=== PATIENT | male | born 1995 | race Caucasian/White ===

== ENCOUNTER 2023-08-31 12:43 | Outpatient (AMB) | payer OTHER, SELFPAY ==
--- NOTE | 2023-08-31 12:46 | MHC.OFFWIV ---
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) Intake Note: pt is here today for lft pinky broken RT index cut started 2 weeks ago Patient Tobacco Use Status: Current everyday Tobacco user Allergies No Known Allergies Allergy (Verified 08/31/23 12:52) Do you need a note to return to daycare/school/sports/work: No HPI HPI Comments History of Present Illness Details Patient is a 27yo M who presents for 2 complaints 3 weeks ago he injured himself on R and L hand injury 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 [employer] He hurt his L 5th digit and got a cut to his R hand 2nd digit He said R hand 2nd digit abrasion He kept open to the air Due to cold weather it formed a scab but keeps opening due to being on his knuckle He denies pain or discharge No bleeding No fever or chills R hand dominant He said L 5th digit jammed at work Bothered slightly but last week 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 and hurt it more Decreased ROM L 5th digit at distal finger 5/10 pain Worse with movement No numbness No medicine taken for it PFSH Social History Patient Tobacco Use Status: Current everyday Tobacco user Review of Systems Const Denies chills, Denies fever(s) and Denies weakness Musc Denies back pain, Denies myalgias, Reports arthralgias, Reports limited range of motion and Denies tingling Skin/Breast Reports wounds Neuro Denies tingling, Denies paresthesias and Denies weakness Physical Exam Vital Signs: Last Vital Signs Temp 98.5 F 08/31/23 12:49 Pulse 73 08/31/23 12:49 BP 122/68 08/31/23 12:49 Pulse Ox 97 08/31/23 12:49 Oxygen Delivery Method Room Air 08/31/23 12:49 BMI result Body Mass Index 24.1 General: Non-toxic, NAD. Speaking full sentences. Skin: Warm dry throughout R 2nd digit at PIP joint pt has scabbed Y shaped lesion with central fissure. Slight surrounding edema without erythema. No drainage or bleeding + slight edema L distal 5th digit Respiratory: No tachypnea MSK: + decreased flexion at L 5th DIP joint. No tenderness to palpation extension or flexor surface of digit. No tenderness to palpation L 5th MCP or PIP joint. Full ROM digits R hand Neurology: A/O. No aphasia or facial droop. Gait without abnormality Psych: Good mood and affect Assessment & Plan Assessment & Plan (1) Finger injury: Code(s): S69.90XA - Unspecified injury of unspecified wrist, hand and finger(s), initial encounter Qualifiers: Encounter type: initial encounter Laterality: left Qualified Code(s): S69.92XA - Unspecified injury of left wrist, hand and finger(s), initial encounter Plan: Patient seen and evaluated. Xray L 5th digit: see below (2) Non-healing wound of upper extremity: Code(s): S41.109A - Unspecified open wound of unspecified upper arm, initial encounter Qualifiers: Encounter type: initial encounter Laterality: right Qualified Code(s): S41.101A - Unspecified open wound of right upper arm, initial encounter Plan: Area cleaned Discussed xerform dressings Neosporin topically Keep clean Call with concerns of infection (3) Finger fracture, left: Code(s): S62.609A - Fracture of unspecified phalanx of unspecified finger, initial encounter for closed fracture Qualifiers: Encounter type: initial encounter Finger: little finger Fracture alignment: displaced Fracture type: closed Phalanx: distal Qualified Code(s): S62.637A - Displaced fracture of distal phalanx of left little finger, initial encounter for closed fracture Plan: Patient seen and evaluated. xray + fx to extensor surface proximal aspect of distal 5th phalanx Finger splint applied Ortho referral given Patient gave verbal understanding and had no additional questions or concerns at time of discharge All questions answered Orders: Orders XR finger LT min 2V Today S69.90XA - Unspecified injury of unspecified wrist, hand and finger(s), initial encounter Referrals Orthopedics Referral S62.609A - Fracture of unspecified phalanx of unspecified finger, initial encounter for closed fracture Coding Level of Care Code Est Pt Level 4 (08355) Diagnoses Injury of finger of left hand, initial encounter S69.92XA Encounter type: initial encounter Laterality: left Non-healing wound of upper extremity, right, initial encounter S41.101A Encounter type: initial encounter Laterality: right Closed displaced fracture of distal phalanx of left little finger, initial encounter S62.637A Encounter type: initial encounter Finger: little finger Fracture alignment: displaced Fracture type: closed Phalanx: distal
[2023-08-31 12:49] VITALS: BP 122/68; PULSE 73; TEMP 36.9; O2SAT 97; BMI 24.1
== END 2023-08-31 13:41 | disposition home or self-care (01) ==
PROVIDERS: Visit Provider Physician Assistant
DX: S69.92XA Unspecified injury of left wrist, hand and finger(s), initial encounter (principal); S41.101A Unspecified open wound of right upper arm, initial encounter; S62.637A Displaced fracture of distal phalanx of left little finger, initial encounter for closed fracture
CPT/HCPCS: 99214

== ENCOUNTER 2023-08-31 13:05 | Outpatient (REF) | payer OTHER, SELFPAY ==
--- NOTE | ~2023-08-31 | XR_ITS ---
EXAMINATION: XR FINGER, LEFT CLINICAL INFORMATION: Injury of the fifth digit COMPARISON: None available. TECHNIQUE: 3 views of the left small finger. FINDINGS: There is an acute traumatic fracture of the base of the distal phalanx of the fifth digit. The distal phalanx fragment is displaced slightly ventrally. The bones and soft tissues are otherwise unremarkable. No additional fracture. XR/XR finger LT min 2V IMPRESSION: Fracture of the base of the distal phalanx of the fifth digit.
== END 2023-08-31 13:06 | disposition home or self-care (01) ==
LOC: HO.HMGCX 13:05
PROVIDERS: Visit Provider Physician Assistant
DX: S69.92XA Unspecified injury of left wrist, hand and finger(s), initial encounter (principal); X58.XXXA Exposure to other specified factors, initial encounter; Y93.9 Activity, unspecified; Y92.9 Unspecified place or not applicable; Y99.9 Unspecified external cause status
CPT/HCPCS: 73140

== ENCOUNTER 2023-09-06 11:11 | Outpatient (AMB) | payer OTHER, SELFPAY ==
--- NOTE | 2023-09-06 11:16 | A.OFFVIS_ITS ---
Intake Vital Signs 09/06/23 11:23 Height 5 ft 11 in Weight 173 lb BMI 24.1 Intake Visit Reasons: FC-Closed displaced of distal phalanx of LT Pinky Intake Note: Justin is a 27 year old right hand dominant male who presents today for a evaluation of his left 5th finger displaced, DOI about 3 weeks ago. Patient reports he initially injured his finger when he crushed his small finger in between pieces of wood. He states his pain increased after hitting a window out of a car when trying to help another person. Patient presented to [facility] walk in in where xrays were taken. Currently his pain comes with accidentally bumping his finger and is located at the DIP of his small finger. Allergies No Known Allergies Allergy (Verified 09/06/23 11:23) HPI FC-Closed displaced of distal phalanx of LT Pinky HPI Details 27-year-old right hand dominant male who presents in the office today, as a new patient, for an evaluation of left hand pain. The patient presented to the [facility] on 08/31/2023 status post 3 weeks prior fracturing his left pink and cutting his right index fingers. He stated he jammed his left little finger while at work and had increased pain since. X-rays were obtained. He was placed in a finger splint and referred to orthopedics. The patient reported he sprained the little digit around [place] between two pieces of wood. He states he broke the finger about 2 weeks ago after he hit the finger on a window when trying to help someone else. He reports his pain is located at the DIP of the small finger. 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 Patient has no known allergy history. Patient is not currently taking any medication. Patient has no known medical history. Patient has no known surgical history. Patient has a social history, as follows: -Tobacco; currently user. [facility] Social History (Updated 09/06/23 @ 11:19 by ERNST Hancock) Patient Tobacco Use Status: Current everyday Tobacco user Current occupational status: employed Current occupation: construction, right hand dominant Review of Systems Const All systems reviewed & are unremarkable except as noted in HPI and below Physical Exam Vital Signs: BMI result Body Mass Index 24.1 Const General: cooperative and no acute distress Orientation/consciousness: patient oriented x3 Resp Effort & Inspection: normal respiratory effort and able to speak in complete sentences Cardio Peripheral pulses: Peripheral pulses 2+ throughout Skin General skin exam: no rashes or lesions noted Neuro General: patient oriented x3 Extrem Other: Left little finger: Edema over the DIP. Difficulty with any flexion and extension at the DIP. Able to flex and extend the PIP and CMC. Sensation intact. Capillary refill is brisk. Office Procedures Fracture Care Fracture Billing Code: Fracture Billing Code Assessment & Plan Assessment & Plan (1) Fracture of phalanx of left little finger: Code(s): S62.607A - Fracture of unspecified phalanx of left little finger, initial encounter for closed fracture Qualifiers: Encounter type: initial encounter Fracture alignment: displaced Fracture type: closed Phalanx: unspecified phalanx Qualified Code(s): S62.607A - Fracture of unspecified phalanx of left little finger, initial encounter for closed fracture Plan Mr. Lawton is a 27-year-old right hand dominant male who presents in the office today, as a new patient, for an evaluation of left hand pain. The patient presented to the [facility] on 08/31/2023 status post 3 weeks prior fracturing his left pink and cutting his right index fingers. He stated he jammed his left little finger while at work and had increased pain since. X-rays were obtained. He was placed in a finger splint and referred to orthopedics. The patient reported he sprained the little digit around [place] between two pieces of wood. He states he broke the finger about 2 weeks ago after he hit the finger on a window when trying to help someone else. He reports his pain is located at the DIP of the small finger. 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 Patient has no known allergy history. Patient is not currently taking any medication. Patient has no known medical history. Patient has no known surgical history. Patient has a social history, as follows: -Tobacco; currently user. I discussed in detail the procedure and what to expect pre and post operatively. We discussed the risks, benefits and alternatives to the surgery as well as the rehabilitation course. The risks; which include, but are not limited to infection, bleeding, nerve injury, ongoing pain, swelling, and stiffness, perioperative risk of injury to bones and soft tissues, and blood clots. I have answered all questions and with their understanding they have consented to move forward with an open versus closed reduction, internal fixation of the left little finger to be performed on 09/08/[address] María Brown. The patient will be placed in a stack splint, off the shelf, while in the office today. Follow up will be at the post operative appointment, or sooner if needed. X-rays of the left hand, obtained on 08/31/2023, revealed: Fracture of the base of the distal phalanx of the fifth digit. Patient Instructions: Scribed for Briana Montes PA-C by Sofía Mei certified medical transcriptionist, on 09/06/2023 at 11:14 am, EST. Coding Level of Care Code New Pt Level 4 (86936) Diagnoses Closed displaced fracture of phalanx of left little finger, unspecified phalanx, initial encounter S62.607A Encounter type: initial encounter Fracture alignment: displaced Fracture type: closed Phalanx: unspecified phalanx CPT Codes Fracture Care - Fracture Billing Code: Fracture Billing Code ([id number])
[2023-09-06 11:23] VITALS: BMI 24.1
== END 2023-09-06 11:32 | disposition home or self-care (01) ==
PROVIDERS: Visit Provider Physician Assistant
DX: S62.607A Fracture of unspecified phalanx of left little finger, initial encounter for closed fracture (principal); Z04.2 Encounter for examination and observation following work accident
CPT/HCPCS: 99204

== ENCOUNTER → 2023-09-06 11:11 | Outpatient (BNVA) | payer OTHER, SELFPAY | PROVIDERS: Visit Provider Physician Assistant | DX: S62.607A Fracture of unspecified phalanx of left little finger, initial encounter for closed fracture (principal) | CPT/HCPCS: 99202 ==

== ENCOUNTER 2023-09-08 05:55 | Day surgery (SDC) | payer OTHER, SELFPAY ==
--- NOTE | 2023-09-07 09:39 | HO.ANESPROP2 ---
HPI - Anesthesia Eval Consult details Narrative: 27yo M for Left Middle Finger distal Phalanx Finger Fx CRPP PMFSH Active Problems Active Problems: All Active Problems (Updated 09/06/23 @ 11:29 by Sofía Mei) Fracture of phalanx of left little finger (Acute) Finger fracture, left (Acute) Non-healing wound of upper extremity (Acute) Finger injury (Acute) Social History Social History (Updated 09/06/23 @ 11:19 by Yecenia Delgado oSnia) Patient Tobacco Use Status: Current everyday Tobacco user Current occupational status: employed Current occupation: construction, right hand dominant Meds Allergies Allergy/AdvReac Type Severity Reaction Status Date / Time No Known Allergies Allergy Verified 09/06/23 11:23 Home Medications Medication Instructions Recorded Confirmed Last Taken Type No Known Home Meds 08/31/23 08/31/23 Unknown History Assessment and Plan Assessment Anesthesia Assessment: Chart Reviewed
[2023-09-08] VITALS (8 sets, daily range): BP systolic 112–130; BP diastolic 66–85; PULSE 59–83; RESP 10–20; TEMP 36.1–36.7; O2SAT 97–100; BMI 23.5
--- NOTE | ~2023-09-08 | FL_ITS ---
EXAMINATION: Intraoperative fluoroscopy CLINICAL INFORMATION: Middle finger distal phalanx COMPARISON: Left finger x-rays 08/31/2023 TECHNIQUE: Intraoperative fluoroscopy was provided for use by Dr. Brown. A total of 8 images were saved to PACS. A radiologist was not present during imaging. Today's dictation is only for administrative purposes to document intraoperative fluoroscopic usage. TOTAL FLUOROSCOPIC TIME: 36 seconds DAP: 0.0472 Gy-cm FL/FL guidance in OR FINDINGS~\^^ Intraoperative fluoroscopy provided for use by Dr. Brown. Please see operative note for detailed findings.
[2023-09-08] MEDS: Lactated Ringers 1,000 ML 100 ML IVCONT (06:33)
--- NOTE | 2023-09-08 07:29 | P.CONAN_ITS ---
[facility] Active Problems Active Problems: All Active Problems (Updated 09/08/23 @ 06:12 by Tania Grayson) Fracture of phalanx of left little finger (Acute) Finger fracture, left (Acute) Non-healing wound of upper extremity (Acute) Finger injury (Acute) Past Medical History Medical History (Updated 09/08/23 @ 06:12 by Tania Grayson) Smokes tobacco daily No pertinent past medical history Family History Family history of problems with anesthesia: No Surgical History Surgical History (Updated 09/08/23 @ 06:12 by Tania Grayson) No pertinent past surgical history History of Problems with Anesthesia: No Social History Social History (Updated 09/06/23 @ 11:19 by ERNST Hancock) Patient Tobacco Use Status: Current everyday Tobacco user Tobacco use type: Cigarette Cigarette Packs Per Day: 0.5 Cigarettes Per Day: 10.0 Years Smoked: 10 Smoked in Last 30 Days: Yes Use of substances other than those prescribed or required for medical reasons: Yes Substance Use Frequency: Occasionally Are you DNR?: No Advance Directives: No Advance Directives Information Provided: Yes Current occupational status: employed Current occupation: construction, right hand dominant Meds Allergies Allergy/AdvReac Type Severity Reaction Status Date / Time No Known Allergies Allergy Verified 09/08/23 06:12 Active Medications: Current Medications Lactated Ringer's (Lr) 1,000 mls @ 100 mls/hr IVCONT .Q10H SHANTELL Last Admin: 09/08/23 06:33 Dose: 100 mls/hr Home Medications Medication Instructions Recorded Confirmed Last Taken Type No Known Home Meds 08/31/23 09/08/23 Unknown History Exam Height,Weight and Vital Signs: Height 5 ft 11 in Weight 76.294 kg Last Vital Signs Temp 98.0 F 09/08/23 06:15 Pulse 75 09/08/23 06:15 Resp 16 09/08/23 06:15 BP 120/80 09/08/23 06:15 Pulse Ox 100 09/08/23 06:15 O2 Del Method Room Air 09/08/23 06:15 Airway Mallampati Class: I TM Dist: >3cm Neck ROM: Full Loose/Missing/Broken Teeth: No Heart: rrr Lungs: clear Assessment and Plan Final Anesthetic Review Family History of Problems with Anesthesia: No History of Problems with Anesthesia: No NPO: Yes ASA Class: I Final Preanesthetic Review: No Changes in Pt Med Stat, Meds/Allgs Chart Reviewed, Consent Obtained/Reviewed and Anes Risks/Benef Reviewed Patient Risk: Low Procedure Risk: Low Anesthetic Plan Anesthetic Plan: GA Disposition: Standard PACU
--- NOTE | 2023-09-08 07:37 | P.CONAN_ITS ---
[facility] Active Problems Active Problems: All Active Problems (Updated 09/08/23 @ 06:12 by Tania Grayson) Fracture of phalanx of left little finger (Acute) Finger fracture, left (Acute) Non-healing wound of upper extremity (Acute) Finger injury (Acute) Past Medical History Medical History (Updated 09/08/23 @ 06:12 by Tania Grayson) Smokes tobacco daily No pertinent past medical history Family History Family history of problems with anesthesia: No Surgical History Surgical History (Updated 09/08/23 @ 06:12 by Tania Grayson) No pertinent past surgical history History of Problems with Anesthesia: No Social History Social History (Updated 09/06/23 @ 11:19 by Yecenia Delgado Sonia) Patient Tobacco Use Status: Current everyday Tobacco user Tobacco use type: Cigarette Cigarette Packs Per Day: 0.5 Cigarettes Per Day: 10.0 Years Smoked: 10 Smoked in Last 30 Days: Yes Use of substances other than those prescribed or required for medical reasons: Yes Substance Use Frequency: Occasionally Are you DNR?: No Advance Directives: No Advance Directives Information Provided: Yes Current occupational status: employed Current occupation: construction, right hand dominant Meds Allergies Allergy/AdvReac Type Severity Reaction Status Date / Time No Known Allergies Allergy Verified 09/08/23 06:12 Active Medications: Current Medications Lactated Ringer's (Lr) 1,000 mls @ 100 mls/hr IVCONT .Q10H SHANTELL Last Admin: 09/08/23 06:33 Dose: 100 mls/hr Home Medications Medication Instructions Recorded Confirmed Last Taken Type No Known Home Meds 08/31/23 09/08/23 Unknown History Exam Height,Weight and Vital Signs: Height 5 ft 11 in Weight 76.294 kg Last Vital Signs Temp 98.0 F 09/08/23 06:15 Pulse 75 09/08/23 06:15 Resp 16 09/08/23 06:15 BP 120/80 09/08/23 06:15 Pulse Ox 100 09/08/23 06:15 O2 Del Method Room Air 09/08/23 06:15 Assessment and Plan Final Anesthetic Review Family History of Problems with Anesthesia: No History of Problems with Anesthesia: No Final Preanesthetic Review: Anes Risks/Benef Reviewed
--- NOTE | 2023-09-08 07:50 | MHC.SHP ---
Pre-Procedural Eval Section A Date of Service: 09/08/23 The patient is an INPATIENT: No Changes since office visit: No Cold of Flu in the past 2 weeks, No New Medical Problems, No Changes in Medication and No Patient answered all questions The History & Physical has been completed within 30 days and I have reviewed it.: Yes Section B Chief Complaint: Fracture of unspecified phalanx of left little fin Allergies: Allergies Allergy/AdvReac Type Severity Reaction Status Date / Time No Known Allergies Allergy Verified 09/08/23 06:12 Plan I have reviewed the history and physical and performed a pertinent physical examination on my patient. No changes have occurred unless specified. Time Spent With Patient Time: Total time managing care of this patient today ____ minutes.
--- NOTE | 2023-09-08 07:51 | P.OP_ITS ---
Operative Note Operative Note Date of Service: 09/08/23 Narrative: Operative Note Narrative: Preop diagnosis: 1. Left small finger distal phalanx base fracture Postop diagnosis: Same Procedure: 1. Left small finger distal phalanx CRPP 2. Ulnar nerve block Surgeon: María Brown MD Anesthesia: General Anesthesia Findings: finger fracture Implants: 0.035 K-wires times 3 Tourniquet time: None EBL: Minimal Specimen: None Drains: None Complications: None Disposition: Brought to the recovery room in stable condition Plan: Follow-up in 10-14 days for a wound check, postop radiographs and for placement in a short-arm finger spica cast Anticipate K-wire removal in 4-5 weeks based on interval bony healing Educate the patient that full fracture healing anticipated in approximately 8-12 weeks. Indications: The patient is 27 years old with left small finger distal phalanx base fracture with displacement . The risks and benefits of operative treatment, including but not limited to risk of damage to blood vessels, nerves, tendons, infection, recurrence, delayed or nonunion of fracture, persistent pain or numbness, incomplete resolution of preoperative symptoms, or need for further surgery were discussed with the patient and they wished to proceed with surgery. Procedure: Once consent was obtained patient was brought back to the operating suite and placed in the operating table in a supine position. . Perioperative antibiotics and general anesthesia was administered by the anesthesia team. A tourniquet was applied to the proximal aspect of the left upper extremity and the limb was prepped and draped in a standard surgical fashion. Tourniquet was not inflated during the case. The FluoroScan was used during the case to assist with our fracture reduction and placement of all implants. A closed reduction was performed on the patient's left small finger distal phalanx fracture using a 2 point reduction clamp. I then placed the 1st of three 0.035 K-wires through the dorsal base of the small finger distal phalanx. This was advanced obliquely across the fracture site and into the shaft of the distal phalanx. Two additional 0.035 K- wires were then placed in a similar manner.. Once satisfied with our fracture reduction and placement of the 3 K-wires the pins were bent cut short had pin caps applied. Fracture alignment was assessed for both angular and rotational malalignment. Final fluoroscopic images were then obtained. The wounds were copiously irrigated with normal saline. An ulnar nerve block was then performed by infiltrating about the ulnar nerve at the wrist with some 1% lidocaine with epinephrine for postop pain control. A Sterile dressing and short volar splint extending from the fingertips of the small ring and middle fingers to the forearm was applied. The patient appears to have tolerated the procedure well and with no complications. All digits were well vascularized at the conclusion of the case.
[2023-09-08] MEDS: fentaNYL citrate/PF 100 MCG/2 ML VIAL 25 MCG IVPUSH ×2 (09:40→09:45)
== END 2023-09-08 10:28 | disposition home or self-care (01) ==
PROVIDERS: Visit Provider Orthopaedic Surgery
PROC: (CPT 26756; principal; 2023-09-08 07:30)
DX: S62.607A Fracture of unspecified phalanx of left little finger, initial encounter for closed fracture (principal); W22.8XXA Striking against or struck by other objects, initial encounter; Y93.89 Activity, other specified; Y92.89 Other specified places as the place of occurrence of the external cause; Y99.8 Other external cause status; F17.210 Nicotine dependence, cigarettes, uncomplicated
CPT/HCPCS: 26756; J0690; J1100; J2250; J2405; J2704; J2795; J3010

== ENCOUNTER → 2023-09-08 05:55 | Outpatient (BNV) | payer OTHER, SELFPAY | PROVIDERS: Visit Provider Orthopaedic Surgery | DX: S62.637A Displaced fracture of distal phalanx of left little finger, initial encounter for closed fracture (principal) | CPT/HCPCS: 26756 ==

== ENCOUNTER 2023-09-21 10:06 | Outpatient (REF) | payer OTHER, SELFPAY ==
--- NOTE | ~2023-09-21 | XR_ITS ---
EXAMINATION: XR HAND, LEFT CLINICAL INFORMATION: Left hand pain COMPARISON: Left finger x-ray on 08/31/2023 TECHNIQUE: PA, lateral, and oblique views of the left hand. FINDINGS: BONES: There is percutaneous fixation of the dorsal basal fracture of left fifth finger distal phalanx with 3 Maria Dolores wires. Alignment is close to anatomical. JOINTS: Alignment of joints is normal. SOFT TISSUE: Soft tissue is normal. No radiopaque foreign body or abnormal air collection is seen. XR/XR hand LT min 3V IMPRESSION: Interval successful anatomical reduction and percutaneous fixation of dorsal basal fracture of left fifth finger distal phalanx with Maria Dolores wires.
== END 2023-09-21 10:07 | disposition home or self-care (01) ==
LOC: HO.HOSX 10:06
PROVIDERS: Visit Provider Orthopaedic Surgery
DX: S62.607D Fracture of unspecified phalanx of left little finger, subsequent encounter for fracture with routine healing (principal); M79.642 Pain in left hand; X58.XXXD Exposure to other specified factors, subsequent encounter; Z98.890 Other specified postprocedural states
CPT/HCPCS: 73130; 99212

== ENCOUNTER 2023-09-21 13:48 | Outpatient (AMB) | payer OTHER, SELFPAY ==
--- NOTE | 2023-09-21 14:09 | MHC.OFFVIS ---
Intake Intake Visit Reasons: PO LT little finger fx CRPP 09/08/23 AR Intake Note: Jn 27 yr old male presents today for his Post op visit for his Left little finger fx CRPP 09/08/23 AR. Dressing removed and xrays updated in office. Patient states he has been having some mild pain. Denies numbness and tignling. Allergies No Known Allergies Allergy (Verified 09/08/23 06:12) HPI PO LT little finger fx CRPP 09/08/23 AR HPI Details Justin is a 27 year old right hand dominant man who presents S/p left small finger distal phalanx CRPP, DOS: 09/08/23. He says he is doing well, but has been feeling some mild pain. He says he had a rough few nights following his surgery, due to throbbing pain and lack of sleep. He denies any numbness or tingling. 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 He says his post-op splint got dirty and gross since his surgery. [facility] Medical History (Updated 09/08/23 @ 06:12 by Tania Grayson) Smokes tobacco daily No pertinent past medical history Surgical History (Updated 09/08/23 @ 06:12 by Tania Grayson) No pertinent past surgical history Social History Patient Tobacco Use Status: Current everyday Tobacco user Tobacco use type: Cigarette Cigarette Packs Per Day: 0.5 Cigarettes Per Day: 10.0 Years Smoked: 10 Current occupational status: employed Current occupation: construction, right hand dominant Review of Systems Const All systems reviewed & are unremarkable except as noted in HPI and below Physical Exam Const General: no acute distress and alert Orientation/consciousness: patient oriented x3 Neuro General: patient oriented x3 Extrem Other: The patient was alert oriented and in no acute distress The incision is healing well with no erythema drainage or evidence of infection. Sutures removed and Steri-Strips applied Good active MCP joint ROM of all digits We worked on PIP joint ROM exercises for both his small & ring fingers Sensation is intact Cap refill is brisk Radiographs: 3 views of the left hand, with attention to the small finger, were taken and viewed buy me today in clinic. They show a small finger distal phalanx fracture with satisfactory fracture alignment and position of K-wires. Psych Appearance: grossly normal Affect: normal affect Attitude: cooperative Assessment & Plan Assessment & Plan (1) Fracture of phalanx of left little finger: Code(s): S62.607A - Fracture of unspecified phalanx of left little finger, initial encounter for closed fracture Qualifiers: Encounter type: initial encounter Fracture type: closed Phalanx: unspecified phalanx Fracture alignment: displaced Qualified Code(s): S62.607A - Fracture of unspecified phalanx of left little finger, initial encounter for closed fracture Plan Assessment & Plan: 1. Left small finger distal phalanx fracture, S/P CRPP DOS: 09/08/23 The patient appears to be doing well post-operatively I educated him about the post-operative course I explained the signs and symptoms of infection, if the patient develops any new or worsening erythema, drainage, pain, or warmth they should contact the clinic or attend the ED. He was placed in a short arm finger spica cast to be worn for the next 2-3 weeks I discussed activity modifications, he is to lift nothing heavier than a cellphone for the next 4 weeks I explained that I anticipate full fracture healing anticipated in ~8-12 weeks post-operatively He was given a note to remain out of work X4 weeks. 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 I anticipate removal of some or all K-wires at this time, depending on bony healing Scribed for María Brown MD by Rashaad Bashir, medical physiologist, on 09/21/23 at 2:30 PM, EST. Orders: Orders XR hand LT min 3V Today M79.642 - Pain in left hand Coding Level of Care Code Global (90648) Diagnoses Closed displaced fracture of phalanx of left little finger, unspecified phalanx, initial encounter S62.607A Encounter type: initial encounter Fracture type: closed Phalanx: unspecified phalanx Fracture alignment: displaced
== END 2023-09-21 15:28 | disposition home or self-care (01) ==
PROVIDERS: Visit Provider Orthopaedic Surgery
DX: S62.607A Fracture of unspecified phalanx of left little finger, initial encounter for closed fracture (principal)
CPT/HCPCS: 99024

== ENCOUNTER 2023-10-05 08:44 | Outpatient (AMB) | payer OTHER, SELFPAY ==
--- NOTE | 2023-10-05 08:52 | MHC.OFFVIS ---
Intake Intake Visit Reasons: PO LT LF fx CRPP 09/08/23 AR-xray cast off/ Conf Intake Note: Justin is a 27 year old right hand dominant male who presents today for a post operative visit s/p left small finger fx CRPP from 09/08/[address] Brown. Cast removed and xrays updated in office.Patient reports that he is doing well with no pain, numbness or tingling. Allergies No Known Allergies Allergy (Verified 09/08/23 06:12) HPI PO LT LF fx CRPP 09/08/23 AR-xray cast off/ Conf HPI Details Justin is a 27 year old right hand dominant man who presents S/P left small finger distal phalanx CRPP, DOS: 09/08/23. He says he is doing well, and denies any pain, numbness, or tingling. He says he was frustrated by his limited motion in his cast, and looks forward to having it removed. 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 [facility] Medical History (Updated 09/08/23 @ 06:12 by Tania Grayson) Smokes tobacco daily No pertinent past medical history Surgical History (Updated 09/08/23 @ 06:12 by Tania Grayson) No pertinent past surgical history Social History Patient Tobacco Use Status: Current everyday Tobacco user Tobacco use type: Cigarette Cigarette Packs Per Day: 0.5 Cigarettes Per Day: 10.0 Years Smoked: 10 Current occupational status: employed Current occupation: construction, right hand dominant Physical Exam Const General: no acute distress and alert Orientation/consciousness: patient oriented x3 Neuro General: patient oriented x3 Extrem Other: The patient was alert oriented and in no acute distress The pin sites healing well with no erythema drainage or evidence of infection. Ulnar-most K-wire was removed today, which he tolerated well Two K-wires were left in place today. Initially he had some stiffness after removing his cast We worked on PIP joint ROM exercises for both his small & ring fingers Before leaving clinic he could flex and extend at the MCP & PIP joints of all his digits, including the small finger Sensation is intact Cap refill is brisk Radiographs: 3 views of the left hand, with attention to the small finger, were taken and viewed buy me today in clinic. They show a small finger distal phalanx fracture with satisfactory fracture alignment and position of all K-wires. Psych Appearance: grossly normal Affect: normal affect Attitude: cooperative Assessment & Plan Assessment & Plan (1) Fracture of phalanx of left little finger: Code(s): S62.607A - Fracture of unspecified phalanx of left little finger, initial encounter for closed fracture Qualifiers: Encounter type: initial encounter Fracture alignment: displaced Fracture type: closed Phalanx: unspecified phalanx Qualified Code(s): S62.607A - Fracture of unspecified phalanx of left little finger, initial encounter for closed fracture Plan Assessment & Plan: 1. Left small finger distal phalanx fracture, S/P CRPP DOS: 09/08/23 Ulnar-most K-wire removed: 10/05/23 The patient appears to be doing well post-operatively I educated him about the post-operative course & pin-site care We placed a fresh dressing and a finger splint that would allow for MCP motion. He is able to wash in the shower but should avoid any underwater activities at this time He will continue to remain out of work for another 2 weeks. 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 Anticipate removal of his remaining K-wires at that time. No radiographs necessary We will likely give him a small finger splint to wear with daytime activities for a few weeks Please note that greater than 30 minutes was spent with this patient going over the history, evaluating the patient and radiographs, formulating possible treatment options, discussing them with the patient, and documenting the visit. Scribed for María Brown MD by Rashaad Bashir, clinical medical assistant, on 10/05/23 at 9:05 AM, EST. Orders: Orders XR hand LT min 3V Today M79.642 - Pain in left hand Coding Level of Care Code Global (87844) Diagnoses Closed displaced fracture of phalanx of left little finger, unspecified phalanx, initial encounter S62.607A Encounter type: initial encounter Fracture alignment: displaced Fracture type: closed Phalanx: unspecified phalanx
== END 2023-10-05 09:49 | disposition home or self-care (01) ==
PROVIDERS: Visit Provider Orthopaedic Surgery
DX: S62.607A Fracture of unspecified phalanx of left little finger, initial encounter for closed fracture (principal)
CPT/HCPCS: 99024

== ENCOUNTER 2023-10-05 10:12 | Outpatient (REF) | payer OTHER, SELFPAY ==
--- NOTE | ~2023-10-05 | XR_ITS ---
EXAMINATION: XR HAND, LEFT CLINICAL INFORMATION: Fracture follow-up COMPARISON: 09/21/2023 TECHNIQUE: PA, lateral, and oblique views of the left hand. FINDINGS: Percutaneous fixation of osseous fragment off distal phalanx fragment of the left fifth finger, is seen again without interval change. Fragment not clearly seen being obscured by surgical pins. There is soft tissue swelling seen surrounding the distal phalanx of the finger. XR/XR hand LT min 3V IMPRESSION: Postsurgical changes with fixation of mallet finger.
== END 2023-10-05 10:13 | disposition home or self-care (01) ==
LOC: HO.HOSX 10:12
PROVIDERS: Visit Provider Orthopaedic Surgery
DX: S62.607D Fracture of unspecified phalanx of left little finger, subsequent encounter for fracture with routine healing (principal); X58.XXXD Exposure to other specified factors, subsequent encounter
CPT/HCPCS: 73130; 99212

== ENCOUNTER 2023-10-19 08:38 | Outpatient (AMB) | payer OTHER, SELFPAY ==
--- NOTE | 2023-10-19 08:43 | A.OFFVIS_ITS ---
Intake Intake Visit Reasons: PO LT LF fx CRPP 09/08/23 AR-xray cast off/ Conf Intake Note: Justin is a 27 year old right hand dominant male who presents today for a post operative visit s/p left small finger fx CRPP from 09/08/[address] Brown. States he is doing very well and ready to have his pin pulled. Allergies No Known Allergies Allergy (Verified 10/19/23 08:44) HPI PO LT LF fx CRPP 09/08/23 AR-xray cast off/ Conf HPI Details Justin is a 27 year old right hand dominant man who presents S/P left small finger distal phalanx CRPP, DOS: 09/08/23. He says he is doing well, and denies any pain, numbness, or tingling. He says he is looking forward to having his remaining pins removed today. 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 [facility] Medical History (Updated 09/08/23 @ 06:12 by Tania Grayson) Smokes tobacco daily No pertinent past medical history Surgical History (Updated 09/08/23 @ 06:12 by Tania Grayson) No pertinent past surgical history Social History Patient Tobacco Use Status: Current everyday Tobacco user Tobacco use type: Cigarette Cigarette Packs Per Day: 0.5 Cigarettes Per Day: 10.0 Years Smoked: 10 Current occupational status: employed Current occupation: construction, right hand dominant Review of Systems Const All systems reviewed & are unremarkable except as noted in HPI and below Physical Exam Const General: no acute distress and alert Orientation/consciousness: patient oriented x3 Neuro General: patient oriented x3 Extrem Other: The patient was alert oriented and in no acute distress The pin sites healing well with no erythema drainage or evidence of infection. Remaining K-wires were removed today, which he tolerated well Before leaving clinic he could flex and extend at the MCP & PIP joints of all his digits, including the small finger Sensation is intact Cap refill is brisk Radiographs: 3 views of the left hand, with attention to the small finger, were taken and viewed buy me today in clinic. They show a small finger distal phalanx fracture with satisfactory fracture alignment and position of remaining 2 K-wires. Psych Appearance: grossly normal Affect: normal affect Attitude: cooperative Assessment & Plan Assessment & Plan (1) Fracture of phalanx of left little finger: Code(s): S62.607A - Fracture of unspecified phalanx of left little finger, initial encounter for closed fracture Qualifiers: Encounter type: initial encounter Fracture alignment: displaced Fracture type: closed Phalanx: unspecified phalanx Qualified Code(s): S62.607A - Fracture of unspecified phalanx of left little finger, initial encounter for closed fracture Plan Assessment & Plan: 1. Left small finger distal phalanx fracture, S/P CRPP DOS: 09/08/23 Ulnar-most K-wire removed: 10/05/23 Remaining K-wires removed: 10/19/23 The patient appears to be doing well post-operatively I educated him about the post-operative course & pin-site care He should avoid any underwater activities for at least the next 5 days He was fitted for a volar finger splint for the DIP joint, to be worn with heavy or daytime activities when out of the house for the next 2 weeks He should avoid any ball sports or similar activities for the next 4 weeks. 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 He will follow up prn Scribed for María Brown MD by Rashaad Bashir, vice president medical affairs, on 10/19/23 at 9:10 AM, EST. Orders: Orders XR hand LT min 3V Today M79.642 - Pain in left hand Coding Level of Care Code Global (73044) Diagnoses Closed displaced fracture of phalanx of left little finger, unspecified phalanx, initial encounter S62.607A Encounter type: initial encounter Fracture alignment: displaced Fracture type: closed Phalanx: unspecified phalanx
== END 2023-10-19 09:23 | disposition home or self-care (01) ==
PROVIDERS: Visit Provider Orthopaedic Surgery
DX: S62.607A Fracture of unspecified phalanx of left little finger, initial encounter for closed fracture (principal)
CPT/HCPCS: 99024

== ENCOUNTER 2023-10-19 10:33 | Outpatient (REF) | payer OTHER, SELFPAY ==
--- NOTE | ~2023-10-19 | XR_ITS ---
EXAMINATION: XR HAND, LEFT CLINICAL INFORMATION: Pain. COMPARISON: Radiograph left hand 10/05/2023. TECHNIQUE: PA, lateral, and oblique views of the left hand. FINDINGS: There are 2 wires traversing a known fracture along the dorsal aspect of the base of the fifth distal phalanx, previously there were 3 wires on 10/05/2023. Alignment and appearance of the fracture is unchanged. No interval injuries. Stable soft tissue swelling surrounding the distal fifth digit. XR/XR hand LT min 3V IMPRESSION: There are 2 wires traversing a fracture at the base of the distal fifth phalanx, previously there were 3 wires on 10/05/2023. Correlate with recent intervention. Otherwise, no significant change compared to 10/05/2023.
== END 2023-10-19 10:34 | disposition home or self-care (01) ==
LOC: HO.HOSX 10:33
PROVIDERS: Visit Provider Orthopaedic Surgery
DX: S62.607D Fracture of unspecified phalanx of left little finger, subsequent encounter for fracture with routine healing (principal)
CPT/HCPCS: 73130; 99212